=== PATIENT | male | born 1995 | race Two or more races ===

== ENCOUNTER 2021-04-30 15:04 | Emergency (ER) | payer SELFPAY ==
[2021-04-30] MEDS ORDERED: LORAZEPAM INJ 2 MG/ML VIAL IM ONE (15:30)
[2021-04-30] MEDS ORDERED: LORAZEPAM INJ 2 MG/ML VIAL ONE (15:38)
--- NOTE | 2021-04-30 15:43 | NUR ---
Called lab for Covid test
[2021-04-30] MEDS ORDERED: diphenhydrAMINE HCL 50 MG/ML VIAL ONE (15:51)
[2021-04-30] MEDS ORDERED: HALOPERIDOL LACTATE INJ 5 MG/ML VIAL ONE (15:51)
[2021-04-30] MEDS ORDERED: HALOPERIDOL LACTATE INJ 5 MG/ML VIAL IM ONE (16:00)
[2021-04-30] MEDS ORDERED: diphenhydrAMINE HCL 50 MG/ML VIAL IM ONE (16:00)
[2021-04-30 16:19] LABS: BILIRUBIN,URINE NEGATIVE (NEGATIVE); COLOR,URINE YELLOW (YELLOW); LEUKOCYTE ESTERASE ,URINE NEGATIVE (NEGATIVE); NITRITE, URINE NEGATIVE (NEGATIVE); PROTEIN,URINE NEGATIVE (NEGATIVE); UGLUCOSE NEGATIVE (NEGATIVE); UROBILINOGEN,URINE 0.2 EU/dL (0.2)
--- NOTE | 2021-04-30 17:35 | NUR ---
BLOOD SPECIMEN COLLECTED AND SENT TO THE LAB
--- NOTE | 2021-04-30 17:37 | NUR ---
COVID SWAB DONE AND SENT TO THE LAB
[2021-04-30 17:43] LABS: BASOPHILS % (AUTO) 0.3 % (0.0-2.0); EOSINOPHILS % (AUTO) 3.4 % (0.0-6.0); HEMATOCRIT 44 % (39-51); HEMOGLOBIN 14.8 g/dL (13.5-17.5); LYMPHOCYTES # (AUTO) 1.2 K/uL (0.8-4.8); LYMPHOCYTES % (AUTO) 18.8 % (20.0-44.0); MEAN CORPUSCULAR HGB CONC 33 g/dl (31.0-36.0); MEAN CORPUSCULAR VOLUME 92 fL (80-96); MONOCYTES # (AUTO) 0.4 K/uL (0.1-1.30); MONOCYTES % (AUTO) 6.9 % (2.0-12.0); NEUTROPHILS # (AUTO) 4.4 K/uL (1.8-8.9); NEUTROPHILS % (AUTO) 70.6 % (43.0-81.0); PLATELET COUNT (AUTO) 219 K/uL (150-450); RED BLOOD CELL COUNT(AUTO) 4.79 MIL/uL (4.5-6.0); WHITE BLOOD COUNT (AUTO) 6.3 K/uL (4.3-11.0)
[2021-04-30 17:54] LABS: CALCIUM, SERUM 9.1 mg/dL (8.5-10.1); CARBON DIOXIDE 29 mmol/L (21-32); CHLORIDE 105 mmol/L (98-107); GLUCOSE 85 mg/dL (74-106); POTASSIUM 3.8 mmol/L (3.5-5.1); SODIUM SERUM 142 mmol/L (136-145); UREA NITROGEN, BLOOD 11 mg/dL (7-18)
[2021-04-30 17:59] LABS: ALANINE AMINOTRANSFERASE 37 U/L (12-78); ALBUMIN 3.6 g/dL (3.4-5.0); ALKALINE PHOSPHATASE 82 U/L (46-116); ASPARTATE AMINOTRANSFERASE 40 U/L (15-37); BILIRUBIN,DIRECT 0.1 mg/dL (0.0-0.2); BILIRUBIN,TOTAL 0.5 mg/dL (0.2-1.0); TOTAL PROTEIN, SERUM 7.3 g/dL (6.4-8.2)
[2021-04-30 18:11] LABS: ACETAMINOPHEN < 10 ug/ml (10-30); ALCOHOL, BLOOD < 3 mg/dL (0-0)
--- NOTE | 2021-04-30 19:10 | NUR ---
REPORT GIVEN TO NURSE JOE FOR OPAL
--- NOTE | 2021-04-30 20:15 | NUR ---
Patient is resting comfortably in bed with eyes closed. Easily aroused. VSS
--- NOTE | 2021-04-30 21:05 | NUR ---
pt sleeping, easily arousable, vss
--- NOTE | 2021-04-30 22:45 | NUR ---
Patient is resting comfortably in bed with eyes closed. Easily aroused. VSS
--- NOTE | 2021-04-30 23:18 | NUR ---
PT SLEEPING IN [facility]. NO SIGNS OF DISTRESS NOTED. WILL CONT TO MONITOR PT.
--- NOTE | 2021-04-30 23:25 | NUR ---
MOTHER, BOGDAN LEFT PHONE NUMBER [phone]
--- NOTE | 2021-05-01 02:15 | NUR ---
pt sleeping, attached to monitor and pox. vss
--- NOTE | 2021-05-01 03:14 | NUR ---
Patient is resting comfortably in bed with eyes closed. Easily aroused. VSS
--- NOTE | 2021-05-01 05:06 | NUR ---
Patient discharged to home in stable condition. Written and verbal after care instructions given. Patient verbalizes understanding of instruction.
[2021-05-01 05:08] VITALS: BP 122/74
== END 2021-05-01 05:08 | disposition home or self-care (01) ==
LOC: ER 15:50
DX: F15.129 Other stimulant abuse with intoxication, unspecified (principal); F12.10 Cannabis abuse, uncomplicated; R45.1 Restlessness and agitation; Z20.822 Contact with and (suspected) exposure to COVID-19
CPT/HCPCS: 36415; 80048; 80076; 80143; 80307; 80320; 81003; 85025; 87426; 96372 ×2; 99291; A6403; C9803; J1200; J1630; J2060; G0480

== ENCOUNTER 2021-07-25 09:49 | Emergency (ER) | payer SELFPAY ==
[~2021-07-25] VITALS: Ht 170.2 cm; Wt 65.8 kg
[2021-07-25 09:59] VITALS: BP 127/71
--- NOTE | 2021-07-25 10:27 | NUR ---
CALLED TO [facility] FOR ER MD EVALUATION,NO ANSWER.
--- NOTE | 2021-07-25 10:55 | NUR ---
PT CAME BACK,TO ER 19 FOR EVAL
[2021-07-25] MEDS ORDERED: CIPR500T5 PO (12:26)
--- NOTE | 2021-07-25 12:38 | NUR ---
Patient discharged to home in stable condition. Written and verbal after care instructions given. Patient verbalizes understanding of instruction.
== END 2021-07-25 12:48 | disposition home or self-care (01) ==
LOC: ER 09:50
DX: R19.7 Diarrhea, unspecified (principal); R10.9 Unspecified abdominal pain; F17.290 Nicotine dependence, other tobacco product, uncomplicated